=== PATIENT | male | born 1990 | race Two or more races ===

== ENCOUNTER 2020-08-30 23:02 | Emergency (ER) | payer OTHER ==
[~2020-08-30] VITALS: Ht 177.8 cm; Wt 70.3 kg
== END 2020-08-31 01:36 | disposition home or self-care (01) ==
LOC: ER 23:02
DX: H00.012 Hordeolum externum right lower eyelid (principal)

== ENCOUNTER 2021-09-05 16:43 | Emergency (ER) | payer OTHER ==
[~2021-09-05] VITALS: Ht 177.8 cm; Wt 72.6 kg
[2021-09-05] MEDS ORDERED: NORFLEX100MG PO (17:18)
[2021-09-05] MEDS ORDERED: KETO10TA2 PO (17:18)
== END 2021-09-05 17:22 | disposition home or self-care (01) ==
LOC: ER 16:43
DX: M54.2 Cervicalgia (principal); R51.9 Headache, unspecified

== ENCOUNTER 2022-09-23 18:05 | Emergency (ER) | payer OTHER ==
[~2022-09-23] VITALS: Ht 175.3 cm; Wt 68.0 kg
[~2022-09-23 18:05] MED LIST: KETO10TA2 PO; NORFLEX100MG PO
== END 2022-09-23 20:14 | disposition home or self-care (01) ==
LOC: ER 18:05
DX: J32.9 Chronic sinusitis, unspecified (principal); Z20.822 Contact with and (suspected) exposure to COVID-19

== ENCOUNTER 2022-11-30 20:53 | Emergency (ER) | payer OTHER ==
[~2022-11-30] VITALS: Ht 177.8 cm; Wt 65.8 kg
[2022-11-30] MEDS ORDERED: DOLOGEN CAPLET1 EACH PO (22:36)
[2022-11-30] MEDS ORDERED: PAXLOVID 300-11 EACH PO (22:36)
== END 2022-11-30 22:42 | disposition home or self-care (01) ==
LOC: ER 20:53
DX: U07.1 COVID-19 (principal)

== ENCOUNTER 2024-06-08 08:36 | Emergency (ER) | payer OTHER ==
[~2024-06-08] VITALS: Ht 175.3 cm; Wt 68.0 kg
[~2024-06-08 08:36] MED LIST changes: +DOLOGEN CAPLET1 EACH PO; +PAXLOVID 300-11 EACH PO
[2024-06-08] MEDS ORDERED: KETOROLAC TROMETHAMINE 30 MG VIAL IM ONE (09:15)
[2024-06-08] MEDS ORDERED: ORPHENADRINE CITRATE 30 MG/ML AMPUL IM ONE (09:15)
== END 2024-06-08 10:45 | disposition home or self-care (01) ==
LOC: ER 08:38

== ENCOUNTER → 2024-11-03 | Emergency (ER) | payer OTHER ==
[~2024-11-03] VITALS: Ht 177.8 cm; Wt 68.0 kg
[~2024-11-03] MED LIST changes: +0.9 % SODIUM CHLORIDE 1,000 ML IV SCH; +HYDROGEN PEROXIDE 473 ML BOTTLE TOP ONE; +KETOROLAC TROMETHAMINE 30 MG VIAL IV ONE; +KETOROLAC TROMETHAMINE 30 MG VIAL ONE; +LIDOCAINE HCL 1% 10ML VIAL ONE; +PIPERACILLIN/TAZOBACTAM SODIUM 3.375 GM VIAL IV ONE; +POVIDONE-IODINE 118 ML BOTT TOP ONE
[2024-11-03 23:59] LABS: HEMOGLOBIN 15.3 g/dL (13-16.00); MEAN CELL VOLUME 89.6 fL (80.0-100.00); MEAN CORPUSCULAR HEMOGLOBIN 30.5 pg (27.00-32.0); MEAN CORPUSCULAR HGB CONC 34.1 g/dl (32.0-36.0); PLATELET COUNT 181 K/uL (150-450); RED BLOOD COUNT 5.02 M/uL (4.00-6.00); RED CELL DISTRIBUTION WIDTH 12.8 % (11.5-14.5)
[2024-11-04 00:23] LABS: ALBUMIN 4.1 gm/dL (3.4-5.0); BILIRUBIN TOTAL 0.4 mg/dL (0.3-1.2); CALCIUM 9.5 mg/dL (8.5-10.1); CREATININE SERUM 1.05 mg/dL (0.70-1.30); GFR 81.85; GLOBULINA 3.1 G/DL (2.4-3.5); POTASSIUM 4.05 mEq/L (3.5-5.1); TOTAL PROTEIN 7.2 gm/dL (6.4-8.2)
== END | disposition home or self-care (01) ==
LOC: ER 21:45
PROVIDERS: General Practice
DX: K61.0 Anal abscess (principal)
CPT/HCPCS: 36415; 74177; Q9965

== ENCOUNTER 2025-01-03 12:44 | Emergency (ER) | payer OTHER ==
[~2025-01-03] VITALS: Ht 177.8 cm; Wt 65.8 kg
[~2025-01-03 12:44] MED LIST changes: -0.9 % SODIUM CHLORIDE 1,000 ML IV SCH; -HYDROGEN PEROXIDE 473 ML BOTTLE TOP ONE; -KETOROLAC TROMETHAMINE 30 MG VIAL IV ONE; -KETOROLAC TROMETHAMINE 30 MG VIAL ONE; -LIDOCAINE HCL 1% 10ML VIAL ONE; -PIPERACILLIN/TAZOBACTAM SODIUM 3.375 GM VIAL IV ONE; -POVIDONE-IODINE 118 ML BOTT TOP ONE
== END 2025-01-03 17:49 | disposition home or self-care (01) ==
LOC: ER 12:44
DX: K62.5 Hemorrhage of anus and rectum (principal)